=== PATIENT | male | born 1945 | race Caucasian/White ===

== ENCOUNTER 2016-06-17 13:18 | Outpatient (CLI) | payer OTHER ==
[~2016-06-17 13:18] MED LIST: ADVIL200 M1 PO; ASPIRIN EC81 MG; CARVEDILOL6.25 MG PO; CEBRIA PO; FLUTICASONE FUROATE IN; HYDROCHLOROTHIA25 MG PO; LISINOPRIL10 MG PO; NITROSTAT0.4 MG SL; OMEPRAZOLE20 M1 PO; PERCOCET1 TA1 PO; PROAIR HFA IN; SIMVASTATIN40 MG PO; TAMSULOSIN HCL0.4 MG PO; UMECLIDINIUM IN; VENTOLIN HFA IN; VILANTEROL IN
--- NOTE | 2016-06-17 14:33 | DIAGNOSTIC IMAGING REPORT ---
PROCEDURE: CT THORAX WITH CONTRAST INDICATION: PULMONARY LESION,RT TECHNIQUE: 125 ml of Isovue 300 was injected intravenously and axial images were obtained of the chest with coronal and sagittal reformations. COMPARISON: Chest x-ray 11/25/2014 FINDINGS: Lungs are clear without evidence of a pulmonary nodule. No infiltrates or effusion. 1.1 cm pretracheal lymph node. No aortic dissection or aneurysm. Coronary atherosclerosis. Heart size is normal. Hepatic steatosis. 4.2 x 3.4 cm left adrenal mass. Small hiatal hernia. Old left rib fractures. Mild degenerative changes of the spine. IMPRESSION: 1. No evidence of a pulmonary nodule 2. 4.2 x 3.4 cm left adrenal mass. Recommend CT of the adrenal glands with and without contrast 3. Hepatic steatosis and for hiatal hernia
== END 2016-06-17 23:00 ==
LOC: CT SRH 13:18
DX: R91.1 Solitary pulmonary nodule (principal)